=== PATIENT | male | born 1995 | race Two or more races ===

== ENCOUNTER 2024-12-15 14:21 | Emergency (ER) | payer OTHER ==
[~2024-12-15] VITALS: Ht 165.1 cm; Wt 52.2 kg
[2024-12-15] MEDS ORDERED: KETOROLAC TROMETHAMINE 60 MG VIAL IM ONE ×2 (16:34→16:45)
[2024-12-15] MEDS ORDERED: IBUPROFEN800 MG PO (20:33)
== END 2024-12-15 20:43 | disposition home or self-care (01) ==
LOC: ER 14:21
DX: S62.306A Unspecified fracture of fifth metacarpal bone, right hand, initial encounter for closed fracture (principal); X58.XXXA Exposure to other specified factors, initial encounter; Y93.89 Activity, other specified; Y92.89 Other specified places as the place of occurrence of the external cause; Y99.9 Unspecified external cause status